=== PATIENT | male | born 1945 | race Caucasian/White ===

== ENCOUNTER 2019-07-14 20:38 | Inpatient (IN) ==
[2019-07-15] MEDS ORDERED: NICOTINE 21 MG/24 HR PATCH TRANSDERM PRN (00:02)
[2019-07-15] MEDS ORDERED: hydrALAZINE 20 MG/1 ML VIAL IV PRN (00:02)
[2019-07-15] MEDS ORDERED: GLUCAGON 1 MG VIAL IM PRN (00:02)
[2019-07-15] MEDS ORDERED: diphenhydrAMINE CAP 25 MG CAPSULE PO PRN (00:02)
[2019-07-15] MEDS ORDERED: MORPHINE 4 MG/1 ML VIAL IV PRN (00:02)
[2019-07-15] MEDS ORDERED: guaiFENesin/DM ER 600-30 MG TABLET PO PRN (00:02)
[2019-07-15] MEDS ORDERED: ONDANSETRON 4 MG/2 ML VIAL IV PRN (00:02)
[2019-07-15] MEDS ORDERED: DEXTROSE 10% 250 ML BAG IV PRN (00:29)
[2019-07-15] MEDS: traZODone 50 MG TABLET PO PRN ×2 (01:45→22:15)
[2019-07-15] MEDS: SODIUM CHLORIDE 0.9% 1,000 ML IV SCH ×2 (01:55→15:17)
[2019-07-15 02:32] LABS: Ferritin 206.3 ng/ml (26-388)
[2019-07-15 02:33] LABS: Alanine Aminotransferase 15 U/L (16-61); Albumin 3.1 G/DL (3.4-5.0); Alkaline Phosphatase 88 U/L (45-117); Aspartate Amino Transferase 22 U/L (0-37); Bilirubin,Total < 0.39 MG/DL (0.2-1.0); Blood Urea Nitrogen 40 MG/DL (7-18); Calcium 8.9 MG/DL (8.5-10.1); Estimated Glom Filtration Rate 26 ML/MIN; Glucose 137 MG/DL (74-106); Total Protein 7.9 G/DL (6.4-8.3)
[2019-07-15 02:48] LABS: Basophils % 0.3 % (0.0-0.8); Eosinophils % 0.1 % (0.00-10.9); Hematocrit 39.2 VOL% (42.0-52.0); Hemoglobin 11.6 GM/DL (14.0-18.0); Immature Granulocytes % 0.6 %; Immature Granulocytes Absolute 0.07 #; Lymphocytes # 0.8 10*3/uL (1.4-4.0); Mean Corpuscular HGB Conc 29.6 GM/DL (32-36); Mean Corpuscular Volume 88.7 FL (87-102); Mean Platelet Volume 9.2 FL (9.6-12.0); Monocytes % 4.8 % (1.7-12.7); Neutrophils % 87.2 % (38.7-73.9); Platelet Count 161 T/CUMM (130-400); Red Blood Count 4.42 MC/CUMM (3.8-5.5); Red Cell Distribution Width 18.2 % (9.3-17.3); White Blood Count 11.6 T/CUMM (4-12)
[2019-07-15 03:36] LABS: Bacteria,Urine Few /HPF (Few); Bilirubin,Urine Negative (Negative); Blood, Urine Small mg/dL (Negative); Glucose,Urine (UA) 50 mg/dL (Negative); Ketones,Urine Negative (Negative); Mucus,Urine Occasional /LPF (Occasional); Nitrite,Urine Negative (Negative); Protein,Urine Negative; RBC,Urine 219 /HPF (0-4); Squamous Epithelial Cell,Urine Occasional /HPF (0-10); Urine Color Colorless (Yellow); Urine Specific Gravity 1.005 (1.001-1.035); Urine Urobilinogen < 2.0 EU/DL (0.2-1.0); WBC,Urine 1308 /HPF (0-6)
[2019-07-15 03:38] LABS: Apearance,Urine Cloudy (Clear)
[2019-07-15] MEDS ORDERED: SODIUM CHLORIDE 0.9% 1,000 ML IV ONE (04:08)
[2019-07-15] MEDS: ACETAMINOPHEN 325 MG TABLET PO PRN ×3 (04:08→22:15)
[2019-07-15] MEDS: INSULIN REGULAR 100 UNIT/ML SUBCUT SCH ×3 (05:45→17:59)
[2019-07-15] MEDS: PIPERACILLIN/TAZOBACTAM 3,375 MG in SODIUM CHLORIDE 0.9% 100 ML IV SCH ×2 (08:15→17:30)
[2019-07-15 10:38] LABS: Apearance,Urine CLOUDY (Clear); Bilirubin,Urine Negative (Negative); Blood, Urine Large mg/dL (Negative); Glucose,Urine (UA) Negative (Negative); Ketones,Urine Negative (Negative); Nitrite,Urine Negative (Negative); Protein,Urine 100 MG/DL; RBC,Urine 912 /HPF (0-4); Urine Color Yellow (Yellow); Urine Specific Gravity 1.013 (1.001-1.035); Urine Urobilinogen < 2.0 EU/DL (0.2-1.0); WBC,Urine 691 /HPF (0-6)
[2019-07-15] MEDS: OXYBUTYNIN XL 10 MG TABLET PO SCH (20:50)
[2019-07-15] MEDS: ATORVASTATIN 20 MG TABLET PO SCH (20:50)
[2019-07-15] MEDS: DONEPEZIL 10 MG TABLET PO SCH (20:50)
[2019-07-16] MEDS: PIPERACILLIN/TAZOBACTAM 3,375 MG in SODIUM CHLORIDE 0.9% 100 ML IV SCH ×3 (00:12→16:24)
[2019-07-16] MEDS: INSULIN REGULAR 100 UNIT/ML SUBCUT SCH ×4 (00:23→17:02)
[2019-07-16 06:30] LABS: Albumin 2.4 G/DL (3.4-5.0); Calcium 8.4 MG/DL (8.5-10.1); Osmolality,Calculated 269.5 MOS/KG (273-304); Total Protein 7.2 G/DL (6.4-8.3)
[2019-07-16] MEDS: SODIUM CHLORIDE 0.9% 1,000 ML IV SCH ×4 (06:47→14:18)
[2019-07-16] MEDS: ASPIRIN EC 81 MG TABLET PO SCH (08:05)
[2019-07-16] MEDS: OXYBUTYNIN XL 10 MG TABLET PO SCH ×2 (08:05→20:19)
[2019-07-16] MEDS: MONTELUKAST 10 MG TABLET PO SCH (08:06)
[2019-07-16] MEDS: FINASTERIDE 5 MG TABLET PO SCH (08:06)
[2019-07-16] MEDS: SERTRALINE 50 MG TABLET PO SCH (08:06)
[2019-07-16 09:05] LABS: Basophils % 0.1 % (0.0-0.8); Eosinophils # 0.1 10*3/uL (0.0-0.87); Eosinophils % 0.7 % (0.00-10.9); Hemoglobin 9.4 GM/DL (14.0-18.0); Immature Granulocytes % 0.6 %; Immature Granulocytes Absolute 0.04 #; Lymphocytes # 0.4 10*3/uL (1.4-4.0); Lymphocytes % 5.6 % (21.2-54.2); Mean Corpuscular HGB Conc 29.4 GM/DL (32-36); Mean Corpuscular Volume 89.1 FL (87-102); Mean Platelet Volume 9.7 FL (9.6-12.0); Platelet Count 133 T/CUMM (130-400); Red Blood Count 3.59 MC/CUMM (3.8-5.5); Red Cell Distribution Width 18.1 % (9.3-17.3)
[2019-07-16 10:05] LABS: Sedimentation Rate-Westergren 93 MM/HR (0-20)
[2019-07-16] MEDS: ATORVASTATIN 20 MG TABLET PO SCH (20:19)
[2019-07-16] MEDS: DONEPEZIL 10 MG TABLET PO SCH (20:19)
[2019-07-16] MEDS: traZODone 50 MG TABLET PO PRN (21:14)
[2019-07-17] MEDS: PIPERACILLIN/TAZOBACTAM 3,375 MG in SODIUM CHLORIDE 0.9% 100 ML IV SCH ×2 (00:38→08:30)
[2019-07-17] MEDS: INSULIN REGULAR 100 UNIT/ML SUBCUT SCH ×2 (01:15→07:51)
[2019-07-17] MEDS: SODIUM CHLORIDE 0.9% 1,000 ML IV SCH ×2 (04:49→08:39)
[2019-07-17 05:12] LABS: Basophils % 0.1 % (0.0-0.8); Eosinophils # 0.1 10*3/uL (0.0-0.87); Eosinophils % 0.9 % (0.00-10.9); Hematocrit 33.3 VOL% (42.0-52.0); Hemoglobin 10.2 GM/DL (14.0-18.0); Immature Granulocytes % 0.4 %; Immature Granulocytes Absolute 0.03 #; Lymphocytes # 0.6 10*3/uL (1.4-4.0); Lymphocytes % 8.4 % (21.2-54.2); Mean Corpuscular HGB Conc 30.6 GM/DL (32-36); Mean Corpuscular Volume 86.3 FL (87-102); Mean Platelet Volume 9.4 FL (9.6-12.0); Monocytes % 7.9 % (1.7-12.7); Neutrophils % 82.3 % (38.7-73.9); Platelet Count 139 T/CUMM (130-400); Red Blood Count 3.86 MC/CUMM (3.8-5.5); Red Cell Distribution Width 17.9 % (9.3-17.3); White Blood Count 6.7 T/CUMM (4-12)
[2019-07-17 05:39] LABS: Risk Ratio 6.48; VLDL CHOLESTEROL 36.8 MG/DL
[2019-07-17 05:43] LABS: Albumin 2.7 G/DL (3.4-5.0); Calcium 8.4 MG/DL (8.5-10.1); Osmolality,Calculated 273.2 MOS/KG (273-304); Total Protein 7.1 G/DL (6.4-8.3)
[2019-07-17 06:40] LABS: Sedimentation Rate-Westergren 76 MM/HR (0-20)
[2019-07-17] MEDS: FINASTERIDE 5 MG TABLET PO SCH (08:40)
[2019-07-17] MEDS: SERTRALINE 50 MG TABLET PO SCH (08:40)
[2019-07-17] MEDS: OXYBUTYNIN XL 10 MG TABLET PO SCH (08:40)
[2019-07-17] MEDS: ASPIRIN EC 81 MG TABLET PO SCH (08:40)
[2019-07-17] MEDS: MONTELUKAST 10 MG TABLET PO SCH (08:40)
[2019-07-17 11:22] VITALS: BP 152/76
== END 2019-07-17 11:55 | disposition home health service (06) | DRG 698 ==
LOC: N.2E 23:28 → SUATTDRO 23:28 → N.TELES 07-17 09:17
PROVIDERS: ADMIT Internal Medicine; ATTEND Internal Medicine

== ENCOUNTER 2020-07-04 18:20 | Inpatient (IN) ==
[2020-07-04 19:22] LABS: PT Patient Result 10.3 SECS (9.8-11.9)
[2020-07-04 19:34] LABS: Alanine Aminotransferase 19 U/L (16-61); Albumin 2.6 G/DL (3.4-5.0); Alkaline Phosphatase 105 U/L (45-117); Aspartate Amino Transferase 23 U/L (0-37); Bilirubin,Total < 0.39 MG/DL (0.2-1.0); Blood Urea Nitrogen 96 MG/DL (7-18); Calcium 9.2 MG/DL (8.5-10.1); Carbon Dioxide 17 MMOL/L (21-32); Estimated Glom Filtration Rate 36 ML/MIN; Glucose 99 MG/DL (74-106); Osmolality,Calculated 304.7 MOS/KG (273-304); Potassium 4.7 MMOL/L (3.5-5.1); Sodium 138 MMOL/L (136-145); Total Protein 8.1 G/DL (6.4-8.2); Troponin I < 0.015 NG/ML (0.00-0.045)
[2020-07-04 20:03] LABS: Barbiturates Screen,Urine Positive (Negative); Benzodiazepines Screen,Urine Negative (Negative); Cannabinoid Screen,Urine Negative (Negative); Opiate Screen,Urine Negative (Negative); Phencyclidine Screen,Urine Negative (Negative)
[2020-07-04 20:04] LABS: Bacteria,Urine Many /HPF (Few); Bilirubin,Urine Negative (Negative); Blood, Urine Large mg/dL (Negative); Glucose,Urine (UA) Negative (Negative); Ketones,Urine Negative (Negative); Mucus,Urine Occasional /LPF (Occasional); Nitrite,Urine Positive (Negative); Protein,Urine 30 MG/DL; RBC,Urine 165 /HPF (0-4); Urine Appearance CLOUDY (Clear); Urine Color Yellow (Yellow); Urine Urobilinogen < 2.0 EU/DL (0.2-1.0); WBC,Urine 191 /HPF (0-6)
[2020-07-04 20:37] LABS: Eosinophils # 0.1 10*3/uL (0.0-0.87); Eosinophils % 0.6 % (0.00-10.9); Hemoglobin 12.7 GM/DL (14.0-18.0); Immature Granulocytes % 0.4 %; Immature Granulocytes Absolute 0.03 #; Red Cell Distribution Width 16.6 % (9.3-17.3)
[2020-07-04 20:52] LABS: ABG HCO3 13.2 MMOL/L (20-26); ABG Oxygen Saturation 98.3 % (95-100); ABG PCO2 32.6 MM HG (35-48); ABG TCO2 11.4 MMOL/L (23-27)
[2020-07-04 20:54] LABS: ABG PH 7.192 (7.35-7.45)
[2020-07-04] MEDS ORDERED: GLUCAGON 1 MG VIAL IM PRN (20:58)
[2020-07-04] MEDS ORDERED: ACETAMINOPHEN 325 MG TABLET PO PRN (20:58)
[2020-07-04] MEDS ORDERED: DEXTROSE 50% 25 GM/50 ML VIAL IV PRN (20:58)
[2020-07-04] MEDS ORDERED: hydrALAZINE 20 MG/1 ML VIAL IV PRN (20:58)
[2020-07-04] MEDS ORDERED: SODIUM CHLORIDE 0.9% 1,000 ML IV SCH (21:00)
[2020-07-04 21:01] LABS: Basophils % 0.1 % (0.0-0.8); Lymphocytes # 1.2 10*3/uL (1.4-4.0); Lymphocytes % 14.8 % (21.2-54.2); Mean Corpuscular HGB Conc 29.1 GM/DL (32-36); Mean Corpuscular Volume 89.4 FL (87-102); Mean Platelet Volume 10.7 FL (9.6-12.0); Monocytes % 5.9 % (1.7-12.7); Neutrophils % 78.2 % (38.7-73.9); Platelet Count 199 T/CUMM (130-400); Red Blood Count 4.89 MC/CUMM (3.8-5.5)
[2020-07-04 21:02] LABS: Hematocrit 43.7 VOL% (42.0-52.0)
[2020-07-04] MEDS: SODIUM BICARB INJ 150 MEQ in STERILE WATER INJ 850 ML IV SCH (21:37)
[2020-07-04] MEDS: INSULIN LISPRO 100 UNIT/ML SUBCUT SCH (22:53)
[2020-07-04] MEDS: PIPERACILLIN/TAZOBACTAM 3,375 MG in SODIUM CHLORIDE 0.9% 100 ML IV SCH (22:58)
[2020-07-04] MEDS: ENOXAPARIN 30 MG/0.3 ML SYRINGE SUBCUT SCH (22:59)
[2020-07-05] MEDS: ALBUTEROL 2.5 MG/3 ML NEB RESP TX SCH ×4 (00:51→19:49)
[2020-07-05] MEDS: ONDANSETRON 4 MG/2 ML VIAL IV PRN ×2 (02:37→11:40)
[2020-07-05 03:54] LABS: ABG Base Excess -13.9 MMOL/L (-2.5-2.5); ABG HCO3 13.8 MMOL/L (20-26); ABG PCO2 45.9 MM HG (35-48); ABG TCO2 14.2 MMOL/L (23-27); Allen Test Positive
[2020-07-05 03:57] LABS: ABG PH 7.131 (7.35-7.45)
[2020-07-05] MEDS: PIPERACILLIN/TAZOBACTAM 3,375 MG in SODIUM CHLORIDE 0.9% 100 ML IV SCH ×3 (04:44→21:07)
[2020-07-05 04:46] LABS: Basophils % 0.3 % (0.0-0.8); Eosinophils % 0.4 % (0.00-10.9); Hemoglobin 12.4 GM/DL (14.0-18.0); Immature Granulocytes % 0.4 %; Immature Granulocytes Absolute 0.03 #; Lymphocytes # 1.1 10*3/uL (1.4-4.0); Lymphocytes % 15.1 % (21.2-54.2); Mean Corpuscular HGB Conc 30.2 GM/DL (32-36); Mean Corpuscular Volume 87.6 FL (87-102); Mean Platelet Volume 10.4 FL (9.6-12.0); Monocytes % 4.9 % (1.7-12.7); Neutrophils % 78.9 % (38.7-73.9); Platelet Count 167 T/CUMM (130-400); Red Blood Count 4.68 MC/CUMM (3.8-5.5); Red Cell Distribution Width 16.5 % (9.3-17.3); White Blood Count 7.2 T/CUMM (4-12)
[2020-07-05 05:04] LABS: Albumin 2.5 G/DL (3.4-5.0); Bilirubin,Total 0.6 MG/DL (0.2-1.0); Calcium 8.8 MG/DL (8.5-10.1); Osmolality,Calculated 302.7 MOS/KG (273-304); Potassium 4.3 MMOL/L (3.5-5.1); Risk Ratio 3.52; Total Protein 7.7 G/DL (6.4-8.2); VLDL CHOLESTEROL 44.8 MG/DL
[2020-07-05] MEDS: INSULIN LISPRO 100 UNIT/ML SUBCUT SCH ×4 (06:58→21:07)
[2020-07-05] MEDS: PANTOPRAZOLE 40 MG TABLET PO SCH (09:10)
[2020-07-05] MEDS: SODIUM BICARB INJ 150 MEQ in STERILE WATER INJ 850 ML IV SCH (14:16)
[2020-07-05] MEDS: SKIN HEALING OINT (AQUAPHOR) 50 GM TUBE TOP SCH (17:05)
[2020-07-05 18:53] LABS: Calcium,Urine Random < 5 MG/DL; Creatinine,Urine Random 46 MG/DL; Potassium,Urine Random 11 MMOL/L
[2020-07-05] MEDS: PROPRANOLOL 40 MG TABLET PO SCH (21:07)
[2020-07-05] MEDS: ENOXAPARIN 30 MG/0.3 ML SYRINGE SUBCUT SCH (21:07)
[2020-07-05] MEDS: ATORVASTATIN 20 MG TABLET PO SCH (21:07)
[2020-07-06] MEDS: ALBUTEROL 2.5 MG/3 ML NEB RESP TX SCH ×4 (00:09→19:08)
[2020-07-06] MEDS: SODIUM BICARB INJ 150 MEQ in STERILE WATER INJ 850 ML IV SCH ×2 (01:15→20:28)
[2020-07-06 04:33] LABS: ABG Base Excess -0.7 MMOL/L (-2.5-2.5); ABG HCO3 23.8 MMOL/L (20-26); ABG PH 7.333 (7.35-7.45); ABG PO2 79.2 MM HG (80-95); ABG TCO2 23.4 MMOL/L (23-27); Allen Test Positive
[2020-07-06] MEDS: PIPERACILLIN/TAZOBACTAM 3,375 MG in SODIUM CHLORIDE 0.9% 100 ML IV SCH (04:44)
[2020-07-06 05:50] LABS: Basophils % 0.4 % (0.0-0.8); Eosinophils # 0.1 10*3/uL (0.0-0.87); Hematocrit 32.7 VOL% (42.0-52.0); Immature Granulocytes % 0.4 %; Immature Granulocytes Absolute 0.03 #; Lymphocytes % 13.2 % (21.2-54.2); Mean Corpuscular Volume 88.1 FL (87-102); Mean Platelet Volume 10.7 FL (9.6-12.0); Platelet Count 162 T/CUMM (130-400); Red Blood Count 3.71 MC/CUMM (3.8-5.5); Red Cell Distribution Width 16.2 % (9.3-17.3); White Blood Count 7.7 T/CUMM (4-12)
[2020-07-06 05:51] LABS: Hemoglobin 9.8 GM/DL (14.0-18.0)
[2020-07-06 05:58] LABS: Bilirubin,Total 0.5 MG/DL (0.2-1.0); Calcium 8.2 MG/DL (8.5-10.1); Osmolality,Calculated 295.7 MOS/KG (273-304); Potassium 3.6 MMOL/L (3.5-5.1); Total Protein 6.3 G/DL (6.4-8.2); Uric Acid 4.4 MG/DL (3.5-7.2)
[2020-07-06 06:25] LABS: Parathyroid Hormone Intact 23.7 PG/ML (18.4-80.1)
[2020-07-06] MEDS: INSULIN LISPRO 100 UNIT/ML SUBCUT SCH ×4 (09:49→20:29)
[2020-07-06] MEDS: HALOPERIDOL 5 MG/ML AMP IV PRN ×2 (09:49→23:37)
[2020-07-06] MEDS ORDERED: TUBERCULIN SKIN TEST 0.1 ML SYRINGE INTRADERM ONE (12:43)
[2020-07-06] MEDS: PREGABALIN 100 MG CAPSULE PO SCH (13:08)
[2020-07-06] MEDS: DONEPEZIL 10 MG TABLET PO SCH (13:08)
[2020-07-06] MEDS: DULoxetine 30 MG CAPSULE PO SCH (13:08)
[2020-07-06] MEDS: PROPRANOLOL 40 MG TABLET PO SCH ×2 (13:12→20:30)
[2020-07-06] MEDS: PANTOPRAZOLE 40 MG TABLET PO SCH (13:12)
[2020-07-06] MEDS: PRIMIDONE 50 MG TABLET PO SCH (13:12)
[2020-07-06] MEDS: ASPIRIN EC 81 MG TABLET PO SCH (13:12)
[2020-07-06] MEDS: MULTIVITAMIN (CENTRUM) TABLET PO SCH (13:12)
[2020-07-06] MEDS: MONTELUKAST 10 MG TABLET PO SCH (13:13)
[2020-07-06] MEDS: SODIUM CHLORIDE 0.45% 1,000 ML IV SCH ×2 (13:13→23:37)
[2020-07-06] MEDS: Umeclidinium-Vilanterol [Anoro Ellipta] 62.5-25 mcg/actuation Bl INH SCH (13:14)
[2020-07-06] MEDS: FLUTICASONE 50 MCG NASAL SPRAY 16 GM BOTTLE BOTH NARES SCH ×2 (13:14→20:30)
[2020-07-06] MEDS: SKIN HEALING OINT (AQUAPHOR) 50 GM TUBE TOP SCH (13:14)
[2020-07-06] MEDS: ATORVASTATIN 20 MG TABLET PO SCH (20:30)
[2020-07-06] MEDS: CEFUROXIME 500 MG TABLET PO SCH (20:30)
[2020-07-06] MEDS: ENOXAPARIN 30 MG/0.3 ML SYRINGE SUBCUT SCH (20:30)
[2020-07-06] MEDS: OLANZapine 2.5 MG TABLET PO SCH (20:30)
[2020-07-06] MEDS: ONDANSETRON 4 MG/2 ML VIAL IV PRN (20:36)
[2020-07-07] MEDS: ALBUTEROL 2.5 MG/3 ML NEB RESP TX SCH ×4 (00:05→19:40)
[2020-07-07 06:12] LABS: Calcium 8.2 MG/DL (8.5-10.1); Osmolality,Calculated 289.5 MOS/KG (273-304); Potassium 3.4 MMOL/L (3.5-5.1)
[2020-07-07 06:14] LABS: Basophils % 0.4 % (0.0-0.8); Eosinophils # 0.1 10*3/uL (0.0-0.87); Eosinophils % 2.2 % (0.00-10.9); Hematocrit 33.8 VOL% (42.0-52.0); Hemoglobin 10.2 GM/DL (14.0-18.0); Immature Granulocytes % 0.7 %; Immature Granulocytes Absolute 0.04 #; Lymphocytes # 0.9 10*3/uL (1.4-4.0); Lymphocytes % 16.8 % (21.2-54.2); Mean Corpuscular HGB Conc 30.2 GM/DL (32-36); Mean Corpuscular Volume 88.7 FL (87-102); Mean Platelet Volume 9.7 FL (9.6-12.0); Neutrophils % 70.9 % (38.7-73.9); Platelet Count 137 T/CUMM (130-400); Red Blood Count 3.81 MC/CUMM (3.8-5.5); Red Cell Distribution Width 16.1 % (9.3-17.3); White Blood Count 5.4 T/CUMM (4-12)
[2020-07-07 06:22] LABS: Hypochromasia 1+; Microcytosis 1+; Ovalocytes Slight
[2020-07-07 06:23] LABS: Platelet Estimate Normal
[2020-07-07] MEDS: INSULIN LISPRO 100 UNIT/ML SUBCUT SCH ×4 (09:07→21:49)
[2020-07-07] MEDS: SODIUM BICARBONATE 650 MG TABLET PO SCH (09:11)
[2020-07-07] MEDS: DONEPEZIL 10 MG TABLET PO SCH (09:11)
[2020-07-07] MEDS: PREGABALIN 100 MG CAPSULE PO SCH (09:11)
[2020-07-07] MEDS: DULoxetine 30 MG CAPSULE PO SCH (09:11)
[2020-07-07] MEDS: PROPRANOLOL 40 MG TABLET PO SCH ×2 (09:12→21:49)
[2020-07-07] MEDS: MULTIVITAMIN (CENTRUM) TABLET PO SCH (09:12)
[2020-07-07] MEDS: PANTOPRAZOLE 40 MG TABLET PO SCH (09:12)
[2020-07-07] MEDS: ASPIRIN EC 81 MG TABLET PO SCH (09:12)
[2020-07-07] MEDS: CEFUROXIME 500 MG TABLET PO SCH ×2 (10:12→21:50)
[2020-07-07] MEDS: PRIMIDONE 50 MG TABLET PO SCH (10:13)
[2020-07-07] MEDS: Umeclidinium-Vilanterol [Anoro Ellipta] 62.5-25 mcg/actuation Bl INH SCH (10:13)
[2020-07-07] MEDS: MONTELUKAST 10 MG TABLET PO SCH (10:13)
[2020-07-07] MEDS: FLUTICASONE 50 MCG NASAL SPRAY 16 GM BOTTLE BOTH NARES SCH ×2 (10:13→22:00)
[2020-07-07] MEDS ORDERED: POTASSIUM CHLORIDE 20 MEQ TABLET PO ONE (11:38)
[2020-07-07] MEDS: SKIN HEALING OINT (AQUAPHOR) 50 GM TUBE TOP SCH (16:20)
[2020-07-07] MEDS: SODIUM CHLORIDE 0.45% 1,000 ML IV SCH ×2 (16:21)
[2020-07-07] MEDS: OLANZapine 2.5 MG TABLET PO SCH (21:49)
[2020-07-07] MEDS: ATORVASTATIN 20 MG TABLET PO SCH (21:49)
[2020-07-07] MEDS: ENOXAPARIN 30 MG/0.3 ML SYRINGE SUBCUT SCH (21:49)
[2020-07-08] MEDS: ALBUTEROL 2.5 MG/3 ML NEB RESP TX SCH ×3 (01:23→13:10)
[2020-07-08] MEDS: SODIUM CHLORIDE 0.45% 1,000 ML IV SCH (05:43)
[2020-07-08] MEDS: INSULIN LISPRO 100 UNIT/ML SUBCUT SCH ×2 (08:59→14:19)
[2020-07-08] MEDS: ASPIRIN EC 81 MG TABLET PO SCH (09:00)
[2020-07-08] MEDS: FLUTICASONE 50 MCG NASAL SPRAY 16 GM BOTTLE BOTH NARES SCH (09:01)
[2020-07-08] MEDS: PROPRANOLOL 40 MG TABLET PO SCH (09:01)
[2020-07-08] MEDS: PRIMIDONE 50 MG TABLET PO SCH (09:01)
[2020-07-08] MEDS: PREGABALIN 100 MG CAPSULE PO SCH (09:01)
[2020-07-08] MEDS: DONEPEZIL 10 MG TABLET PO SCH (09:02)
[2020-07-08] MEDS: DULoxetine 30 MG CAPSULE PO SCH (09:02)
[2020-07-08] MEDS: MONTELUKAST 10 MG TABLET PO SCH (09:02)
[2020-07-08] MEDS: PANTOPRAZOLE 40 MG TABLET PO SCH (09:02)
[2020-07-08] MEDS: MULTIVITAMIN (CENTRUM) TABLET PO SCH (09:02)
[2020-07-08] MEDS: SODIUM BICARBONATE 650 MG TABLET PO SCH (09:02)
[2020-07-08] MEDS: CEFUROXIME 500 MG TABLET PO SCH (09:19)
[2020-07-08] MEDS: Umeclidinium-Vilanterol [Anoro Ellipta] 62.5-25 mcg/actuation Bl INH SCH (11:21)
[2020-07-08] MEDS: SKIN HEALING OINT (AQUAPHOR) 50 GM TUBE TOP SCH (11:30)
[2020-07-08 16:28] VITALS: BP 126/64
== END 2020-07-08 18:35 | DRG 698 ==
LOC: EDUNIT# → EDBD → N.ED 18:20 → N.EDINP 20:57 → N.4E 22:13
PROVIDERS: ADMIT Internal Medicine; ATTEND Internal Medicine